=== PATIENT | male | born 1945 | race Asian ===

== ENCOUNTER 2020-03-25 11:36 | Inpatient (IN) | payer OTHER ==
[2020-03-25 13:08] LABS: ACTIVATED PTT 20.5 SECONDS (25.2-36.5)
[2020-03-25 13:11] LABS: ALBUMIN 3.6 g/dl (3.4-5.0); BASO % 1.2 % (0-2.0); BILIRUBIN,TOTAL 0.4 mg/dl (0.2-1); CALCIUM 8.9 mg/dl (8.5-10); CREATININE 0.8 mg/dl (0.55-1.3); EOS % 0.7 % (0-4.5); HEMATOCRIT 24.6 % (35.4-49); HEMOGLOBIN 8.5 GM/dl (11.7-16.9); LYMPH % 19.2 % (8-40); MCH 30.1 pg (25.7-33.7); MCHC 34.7 g/dl (32.0-35.9); MEAN PLT VOLUME 8.1 fl (7.5-11.1); MONO % 5.1 % (3.8-10.2); NEUT % 73.8 % (42.8-82.8); PLATELET COUNT 285 K/MM3 (134-434); RBC 2.83 M/mm3 (4.00-5.60); RDW 13.4 % (11.9-15.9); TOT PROT 6.3 g/dl (6.4-8.2); WHITE BLOOD COUNT 10.5 K/mm3 (4.0-10.8)
[2020-03-25 13:13] LABS: INR 1.09 (0.82-1.09); PROTHROMBIN TIME (PATIENT) 12.1 SEC (10.2-13.0)
[2020-03-25] MEDS ORDERED: PATIENT'S OWN MEDICATION (NON-FORMULARY) (Telmisartan [Telmisartan] 80 MG Tablet) PO SCH (15:15)
[2020-03-25 16:30] VITALS: BMI 28.5
[2020-03-25] MEDS: amLODIPine BESYLATE 2.5 MG TABLET (FP) PO SCH (17:55)
[2020-03-25] MEDS: SODIUM CHLORIDE 1,000 ML IV SCH (17:55)
[2020-03-25 18:50] LABS: HEMATOCRIT 22.1 % (35.4-49); HEMOGLOBIN 7.5 GM/dl (11.7-16.9); MCH 29.4 pg (25.7-33.7); MEAN CELL VOLUME 86.6 fl (80-96); MEAN PLT VOLUME 7.9 fl (7.5-11.1); PLATELET COUNT 249 K/MM3 (134-434); RBC 2.55 M/mm3 (4.00-5.60); RDW 13.3 % (11.9-15.9); WHITE BLOOD COUNT 9.4 K/mm3 (4.0-10.8)
[2020-03-26 08:26] LABS: BASO % 1.1 % (0-2.0); EOS % 1.7 % (0-4.5); HEMATOCRIT 28.6 % (35.4-49); HEMOGLOBIN 9.9 GM/dl (11.7-16.9); MCH 30.2 pg (25.7-33.7); MCHC 34.6 g/dl (32.0-35.9); MEAN CELL VOLUME 87.4 fl (80-96); MEAN PLT VOLUME 7.6 fl (7.5-11.1); MONO % 6.1 % (3.8-10.2); NEUT % 69.1 % (42.8-82.8); PLATELET COUNT 304 K/MM3 (134-434); RBC 3.28 M/mm3 (4.00-5.60); RDW 13.3 % (11.9-15.9); WHITE BLOOD COUNT 12.1 K/mm3 (4.0-10.8)
[2020-03-26 08:34] LABS: ALBUMIN 3.5 g/dl (3.4-5.0); BILIRUBIN,TOTAL 1.1 mg/dl (0.2-1); CALCIUM 8.5 mg/dl (8.5-10); CREATININE 0.8 mg/dl (0.55-1.3); TOT PROT 6.3 g/dl (6.4-8.2)
[2020-03-26] MEDS: VALSARTAN 160 MG TABLET PO SCH (09:51)
[2020-03-26] MEDS: HYDROCHLOROTHIAZIDE 25 MG TABLET (FP) PO SCH (09:52)
[2020-03-26] MEDS: amLODIPine BESYLATE 2.5 MG TABLET (FP) PO SCH (09:53)
[2020-03-26] MEDS: TAMSULOSIN HCL 0.4 MG CAP PO SCH (09:53)
[2020-03-26] MEDS: ALLOPURINOL 300 MG TABLET (FP) PO SCH (09:53)
[2020-03-26] MEDS: FINASTERIDE 5 MG TABLET (FP) PO SCH (09:53)
[2020-03-26] MEDS ORDERED: PANTOPRAZOLE SODIUM 40 MG VIAL IVPUSH SCH (10:00)
[2020-03-26] MEDS ORDERED: PATIENT'S OWN MEDICATION (NON-FORMULARY) (Alfuzosin Hcl [Alfuzosin Hcl Er] 10 MG Tab.Er.24 PO SCH (10:00)
[2020-03-26] MEDS: PANTOPRAZOLE SODIUM 40 MG VIAL IVPUSH SCH ×2 (12:13→21:10)
[2020-03-26] MEDS: SODIUM CHLORIDE 1,000 ML IV SCH (19:00)
[2020-03-26 19:55] LABS: BASO % 3.9 % (0-2.0); EOS % 1.1 % (0-4.5); HEMATOCRIT 25.5 % (35.4-49); HEMOGLOBIN 8.8 GM/dl (11.7-16.9); LYMPH % 13.5 % (8-40); MCH 30.1 pg (25.7-33.7); MCHC 34.6 g/dl (32.0-35.9); MEAN CELL VOLUME 87.1 fl (80-96); MEAN PLT VOLUME 7.8 fl (7.5-11.1); MONO % 6.6 % (3.8-10.2); NEUT % 74.9 % (42.8-82.8); PLATELET COUNT 259 K/MM3 (134-434); RBC 2.92 M/mm3 (4.00-5.60); RDW 13.7 % (11.9-15.9); WHITE BLOOD COUNT 12.9 K/mm3 (4.0-10.8)
[2020-03-27] MEDS ORDERED: ACETAMINOPHEN 325 MG TABLET (FP) PO PRN (04:10)
[2020-03-27 08:31] LABS: BASO % 0.8 % (0-2.0); EOS % 1.2 % (0-4.5); HEMATOCRIT 25.7 % (35.4-49); HEMOGLOBIN 8.8 GM/dl (11.7-16.9); LYMPH % 15.9 % (8-40); MCH 30.1 pg (25.7-33.7); MCHC 34.1 g/dl (32.0-35.9); MEAN CELL VOLUME 88.3 fl (80-96); MEAN PLT VOLUME 7.9 fl (7.5-11.1); MONO % 8.8 % (3.8-10.2); NEUT % 73.3 % (42.8-82.8); PLATELET COUNT 278 K/MM3 (134-434); RBC 2.91 M/mm3 (4.00-5.60); RDW 13.4 % (11.9-15.9); WHITE BLOOD COUNT 11.2 K/mm3 (4.0-10.8)
[2020-03-27 08:56] LABS: ALBUMIN 3.1 g/dl (3.4-5.0); BILIRUBIN,TOTAL 0.8 mg/dl (0.2-1); CALCIUM 8.2 mg/dl (8.5-10); CREATININE 0.8 mg/dl (0.55-1.3); TOT PROT 5.6 g/dl (6.4-8.2)
[2020-03-27] MEDS: VALSARTAN 160 MG TABLET PO SCH (09:26)
[2020-03-27] MEDS: amLODIPine BESYLATE 2.5 MG TABLET (FP) PO SCH (09:26)
[2020-03-27] MEDS: ALLOPURINOL 300 MG TABLET (FP) PO SCH (09:26)
[2020-03-27] MEDS: TAMSULOSIN HCL 0.4 MG CAP PO SCH (09:26)
[2020-03-27] MEDS: PANTOPRAZOLE SODIUM 40 MG VIAL IVPUSH SCH ×2 (09:26→21:16)
[2020-03-27] MEDS: HYDROCHLOROTHIAZIDE 25 MG TABLET (FP) PO SCH (09:26)
[2020-03-27] MEDS: FINASTERIDE 5 MG TABLET (FP) PO SCH (09:26)
[2020-03-27] MEDS: ACETAMINOPHEN 1000 MG/100 ML BAG IVPB PRN ×2 (10:36→18:01)
[2020-03-27] MEDS: SODIUM CHLORIDE 1,000 ML IV SCH (18:00)
[2020-03-28 06:32] VITALS: BP 135/69; PULSE 85; TEMP 99.1
[2020-03-28 08:09] LABS: BASO % 1.1 % (0-2.0); EOS % 1.7 % (0-4.5); HEMOGLOBIN 9.1 GM/dl (11.7-16.9); MCH 29.9 pg (25.7-33.7); MCHC 33.7 g/dl (32.0-35.9); MEAN CELL VOLUME 88.7 fl (80-96); MONO % 9.2 % (3.8-10.2); PLATELET COUNT 316 K/MM3 (134-434); RBC 3.04 M/mm3 (4.00-5.60); RDW 14.2 % (11.9-15.9); WHITE BLOOD COUNT 9.9 K/mm3 (4.0-10.8)
[2020-03-28 08:19] LABS: ALBUMIN 3.1 g/dl (3.4-5.0); BILIRUBIN,TOTAL 0.6 mg/dl (0.2-1); CALCIUM 8.4 mg/dl (8.5-10); CREATININE 0.8 mg/dl (0.55-1.3); TOT PROT 5.7 g/dl (6.4-8.2)
[2020-03-28] MEDS: VALSARTAN 160 MG TABLET PO SCH (09:21)
[2020-03-28] MEDS: ALLOPURINOL 300 MG TABLET (FP) PO SCH (09:21)
[2020-03-28] MEDS: FINASTERIDE 5 MG TABLET (FP) PO SCH (09:21)
[2020-03-28] MEDS: TAMSULOSIN HCL 0.4 MG CAP PO SCH (09:22)
[2020-03-28] MEDS: PANTOPRAZOLE SODIUM 40 MG VIAL IVPUSH SCH (09:22)
[2020-03-28] MEDS: HYDROCHLOROTHIAZIDE 25 MG TABLET (FP) PO SCH (09:22)
[2020-03-28] MEDS: amLODIPine BESYLATE 2.5 MG TABLET (FP) PO SCH (09:22)
== END 2020-03-28 13:44 | disposition home or self-care (01) | DRG 378 ==
LOC: FER 11:36 → FM/S 15:03 → INTOOBSV 15:03 → OBSVTOIN 18:12
PROVIDERS: ADMIT Internal Medicine; ATTEND Nurse Practitioner Acute Care
PROC: 30233N1 Transfusion of Nonautologous Red Blood Cells into Peripheral Vein, Percutaneous Approach (ICD-10-PCS; 2020-03-25)
PROC: 0DB98ZX Excision of Duodenum, Via Natural or Artificial Opening Endoscopic, Diagnostic (ICD-10-PCS; principal; 2020-03-28)
PROC: 0DB68ZX Excision of Stomach, Via Natural or Artificial Opening Endoscopic, Diagnostic (ICD-10-PCS; 2020-03-28)
DX: K29.81 Duodenitis with bleeding (principal); D62 Acute posthemorrhagic anemia; K56.7 Ileus, unspecified; N40.0 Benign prostatic hyperplasia without lower urinary tract symptoms; M10.9 Gout, unspecified; I10 Essential (primary) hypertension; M19.90 Unspecified osteoarthritis, unspecified site; K59.00 Constipation, unspecified; R19.7 Diarrhea, unspecified; K29.50 Unspecified chronic gastritis without bleeding
CPT/HCPCS: 36415; 36430; 36511; 74019-TC-FY; 74176-TC; 80053; 82272; 83735; 84484; 85025; 85027; 85610; 85730; 86850; 86900; 86901; 86922; 88305-TC; 93005; 99285-25; C9803; G0378; J0131; P9038; P9058; U0003

== ENCOUNTER 2020-06-23 08:12 | Day surgery (SDC) | payer OTHER ==
[2020-06-23 07:40] VITALS: BMI 28.3
[2020-06-23] MEDS ORDERED: PROPOFOL 20 ML ONE ×3 (08:21)
[2020-06-23 09:41] VITALS: TEMP 98.2
[2020-06-23 11:26] VITALS: BP 121/76; PULSE 74
== END 2020-06-23 10:30 | disposition home or self-care (01) ==
LOC: FASU-ENDO 08:12
PROVIDERS: ATTEND Internal Medicine Gastroenterology
PROC: 0DBC8ZX Excision of Ileocecal Valve, Via Natural or Artificial Opening Endoscopic, Diagnostic (ICD-10-PCS; 2020-06-23)
PROC: 0DBL8ZX Excision of Transverse Colon, Via Natural or Artificial Opening Endoscopic, Diagnostic (ICD-10-PCS; principal; 2020-06-23 09:07)
DX: Z12.11 Encounter for screening for malignant neoplasm of colon (principal); K63.5 Polyp of colon; D12.3 Benign neoplasm of transverse colon
CPT/HCPCS: 88305-TC

== ENCOUNTER 2020-07-13 04:44 | Day surgery (SDC) | payer OTHER ==
[2020-07-12 13:56] VITALS: BMI 27.3
[~2020-07-13 04:44] MED LIST: ACETAMINOPHEN 325 MG TABLET (FP) PO PRN; BSS (NA/CA/MG/K) BALANCED SALT SOLUTION OPHTH SOLN 15 ML BOTTLE OD ONE; CHONDROITIN SU A/HYALUR SOD 1 KIT IO ONE; LIDOCAINE HCL 1% PRESERVATIVE FREE - 30ML VIAL IO ONE; PHENYLEPHRINE/KETOROLAC 4 ML VIAL IO ONE; POVIDONE-IODINE 5% OPHTHALMIC PREP 30 ML SOLUTION OD ONE; TETRACAINE 0.5% OPHTH SOLN 2 ML BOTTLE TP ONE
[2020-07-13] MEDS ORDERED: TROPICAMIDE 1% OPHTH SOLN 15 ML BOTTLE ONE (06:16)
[2020-07-13] MEDS ORDERED: KETOROLAC TROMETHAMINE 0.5% EYE DROP 1 DROP DROPS ONE (06:16)
[2020-07-13] MEDS ORDERED: CYCLOPENTOLATE HCL 1% OPHTH SOLN 2 ML BOTTLE ONE (06:16)
[2020-07-13] MEDS ORDERED: OFLOXACIN 0.3% OPHTHALMIC SOLUTION 5 ML BOTTLE ONE (06:16)
[2020-07-13] MEDS: CYCLOPENTOLATE HCL 1% OPHTH SOLN 2 ML BOTTLE OP SCH ×3 (06:20→06:30)
[2020-07-13] MEDS: KETOROLAC TROMETHAMINE 0.5% EYE DROP 1 DROP DROPS OP SCH ×3 (06:20→06:30)
[2020-07-13] MEDS: TROPICAMIDE 1% OPHTH SOLN 15 ML BOTTLE OP SCH ×3 (06:20→06:30)
[2020-07-13] MEDS: PHENYLEPHRINE 2.5% OPHTH SOLN 15 ML BOTTLE OP SCH ×3 (06:20→06:30)
[2020-07-13] MEDS: OFLOXACIN 0.3% OPHTHALMIC SOLUTION 5 ML BOTTLE OP SCH ×3 (06:20→06:30)
[2020-07-13] MEDS ORDERED: CHONDROITIN SU A/HYALUR SOD 1 KIT ONE (07:15)
[2020-07-13] MEDS ORDERED: LIDOCAINE HCL/PF 1% SDV 5ML VIAL ONE (07:15)
[2020-07-13] MEDS ORDERED: POVIDONE-IODINE 5% OPHTHALMIC PREP 30 ML SOLUTION ONE (07:15)
[2020-07-13] MEDS ORDERED: TETRACAINE 0.5% OPHTH SOLN 2 ML BOTTLE ONE (07:16)
[2020-07-13] MEDS ORDERED: TRYPAN BLUE 0.5 ML DISP.SYRIN ONE (07:20)
[2020-07-13] MEDS ORDERED: MIDAZOLAM HCL 2 MG/2 ML SINGLE DOSE VIAL ONE (08:02)
[2020-07-13] MEDS ORDERED: TETRACAINE 0.5% OPHTH SOLN 2 ML BOTTLE TP ONE (08:06)
[2020-07-13] MEDS ORDERED: POVIDONE-IODINE 5% OPHTHALMIC PREP 30 ML SOLUTION OD ONE (08:07)
[2020-07-13] MEDS ORDERED: LIDOCAINE HCL 1% PRESERVATIVE FREE - 30ML VIAL IO ONE (08:14)
[2020-07-13] MEDS ORDERED: TRYPAN BLUE 0.5 ML DISP.SYRIN IO ONE (08:14)
[2020-07-13] MEDS ORDERED: BSS (NA/CA/MG/K) BALANCED SALT SOLUTION OPHTH SOLN 15 ML BOTTLE OD ONE (08:14)
[2020-07-13] MEDS ORDERED: CHONDROITIN SU A/HYALUR SOD 1 KIT IO ONE (08:14)
[2020-07-13] MEDS ORDERED: PHENYLEPHRINE/KETOROLAC 4 ML VIAL IO ONE (08:22)
[2020-07-13 09:33] VITALS: BP 156/81; PULSE 92; TEMP 98.1
[2020-07-13] MEDS ORDERED: ACETAMINOPHEN 325 MG TABLET (FP) PO PRN (10:37)
[2020-07-13] MEDS ORDERED: ONDANSETRON 4 MG/2 ML VIAL IVPUSH PRN (10:37)
[2020-07-13] MEDS ORDERED: LACTATED RINGERS SOLUTION 1,000 ML IV SCH (10:45)
== END 2020-07-13 09:40 | disposition home or self-care (01) ==
LOC: JASU-SURG 04:44
PROVIDERS: ATTEND Ophthalmology
PROC: 08RJ3JZ Replacement of Right Lens with Synthetic Substitute, Percutaneous Approach (ICD-10-PCS; principal; 2020-07-13 08:00)
DX: H26.9 Unspecified cataract (principal); I10 Essential (primary) hypertension
CPT/HCPCS: J1097

== ENCOUNTER 2022-04-13 04:25 | Day surgery (SDC) | payer OTHER ==
[2022-04-06 14:49] VITALS: BMI 25.9
[2022-04-13] MEDS ORDERED: MIDAZOLAM HCL 2 MG/2 ML SINGLE DOSE VIAL ONE (07:32)
[2022-04-13] MEDS ORDERED: SODIUM CHLORIDE 0.9% P/F 10 ML VIAL IJ ONE (07:33)
[2022-04-13] MEDS ORDERED: ceFAZolin SODIUM 1 GM VIAL ONE (07:33)
[2022-04-13] MEDS ORDERED: GLYCOPYRROLATE 0.2 MG/1 ML VIAL ONE (07:33)
[2022-04-13] MEDS ORDERED: BUPIVACAINE HCL/PF 0.5% (5MG/ML) 10 ML VIAL ONE (07:36)
[2022-04-13] MEDS ORDERED: oxyCODONE HCL 5 MG TABLET PO PRN (07:38)
[2022-04-13] MEDS ORDERED: ONDANSETRON 4 MG/2 ML VIAL IVPUSH PRN (07:38)
[2022-04-13] MEDS ORDERED: PROMETHAZINE HCL 25 MG/1 ML VIAL IVPUSH PRN (07:38)
[2022-04-13] MEDS ORDERED: LACTATED RINGERS SOLUTION 1,000 ML IV SCH (07:45)
[2022-04-13] MEDS ORDERED: ceFAZolin SODIUM 1 GM VIAL IVPB ONE (08:25)
[2022-04-13] MEDS ORDERED: GENTAMICIN SO4 80 MG/2 ML VIAL ONE (08:46)
[2022-04-13] MEDS ORDERED: PHENYLEPHRINE HCL 10 MG/1 ML SINGLE DOSE VIAL ONE (09:01)
[2022-04-13 10:10] VITALS: RESP 18
[2022-04-13 16:21] VITALS: BP 139/73; PULSE 88; TEMP 98
== END 2022-04-13 16:43 | disposition home or self-care (01) ==
LOC: JASU-SURG 04:25
PROVIDERS: ATTEND Urology
PROC: 0T9B80Z Drainage of Bladder with Drainage Device, Via Natural or Artificial Opening Endoscopic (ICD-10-PCS; 2022-04-13)
PROC: 0TBB8ZX Excision of Bladder, Via Natural or Artificial Opening Endoscopic, Diagnostic (ICD-10-PCS; principal; 2022-04-13 07:30)
DX: N32.3 Diverticulum of bladder (principal); N32.89 Other specified disorders of bladder
CPT/HCPCS: 88305-TC; 94760